=== PATIENT | female | born 1975 | race Caucasian/White ===

== ENCOUNTER 2024-07-25 12:25 | Day surgery (SDC) | payer MEDICAID, SELFPAY ==
[2024-07-24 13:51] VITALS: BMI 29.7
[2024-07-25] VITALS (12 sets, daily range): BP systolic 91–129; BP diastolic 56–82; PULSE 70–86; RESP 13–20; TEMP 36.2–37; O2SAT 96–100; BMI 31.3
[2024-07-25] MEDS: MIDAZOLAM INJ 1 MG/ML VIAL 2 ML (ASD USE ONLY) 2 MG IV (14:36)
[2024-07-25] MEDS: fentaNYL CIT INJ 50 mCg/ML AMP 2ML (ASD USE ONLY) IV (14:41)
[2024-07-25] MEDS: RINGERS LACTATED 1000 ML 1,000 ML 100 ML IV (14:46)
--- NOTE | 2024-07-25 15:24 | SUR.PHASEII ---
1516: received pt from OR via [employer]. received report from JOSUE Quezada. pt awake and alert. no s/s of resp. distress or discomfort. no s/s of pain or discomfort.
--- NOTE | 2024-07-25 15:41 | SUR.PHASEII ---
1541: pt able to drink soda without any issues. she was able to ambulate to bathroom with assist without any difficulty.
--- NOTE | 2024-07-25 15:48 | SUR.PHASEII ---
1548: pt discharge to home via wheelchair with mother at the side. pt alert and oriented to name, place and time. denies any c/o abdominal pain or distress. no s/s of resp. distress or discomfort. discharge instructions given to patient and mother, verbalizes understanding. all belongings brought given back to patient.
== END 2024-07-25 15:48 | disposition home or self-care (01) ==
PROVIDERS: PCP Registered Nurse; Referring Provider Surgery; Visit Provider Surgery
PROC: 0DBE8ZX Excision of Large Intestine, Via Natural or Artificial Opening Endoscopic, Diagnostic (ICD-10-PCS; CPT 45380; principal; 2024-07-25 14:30)
DX: Z12.11 Encounter for screening for malignant neoplasm of colon (principal); K62.1 Rectal polyp
CPT/HCPCS: 45380; A4649; J2250; J3010; J7120